=== PATIENT | female | born 1955 | race Two or more races ===

== ENCOUNTER 2022-11-30 06:21 | Day surgery (SDC) | payer MEDICARE, MEDICAID ==
[~2022-11-30] VITALS: Ht 152.4 cm; Wt 68.0 kg
[~2022-11-30 06:21] MED LIST: ACET-1080 PO; HYDR-4902 PO
[2022-11-30] MEDS ORDERED: PROPOFOL 10 MG/ML 20 ML IV ONE (06:22)
[2022-11-30] MEDS ORDERED: ceFAZolin 1GM/50ML 100 ML IV ONE (06:24)
[2022-11-30] MEDS ORDERED: LIDOCAINE 1% (LOCAL ANESTH.) PF 5ml SDV ONE (06:59)
[2022-11-30] MEDS ORDERED: DexAMETHasone SOD PHOS 4 MG/1ML SDV INJ ONE (07:00)
[2022-11-30] MEDS ORDERED: BUPIVACAINE 0.25% INJ 50ML VIAL ONE (07:00)
[2022-11-30] MEDS ORDERED: fentaNYL CITRATE 100 MCG/2 ML VL ONE (07:07)
[2022-11-30 07:48] VITALS: PULSE 96; RESP 19; TEMP 97.3; O2SAT 100
[2022-11-30] MEDS: HYDROmorphone HCL 2 MG/ML VL/or syr ONE ×2 (07:58→08:10)
[2022-11-30 08:00] VITALS: PULSE 87; RESP 22; O2SAT 97
[2022-11-30] MEDS ORDERED: ONDANSETRON HCL 4 MG/2 ML VIAL IV PRN (08:15)
[2022-11-30] MEDS ORDERED: KETOROLAC TROMETH 30 MG/ML 1ML VIAL IV ONE (08:15)
[2022-11-30] MEDS: HYDROmorphone HCL 2 MG/ML VL/or syr IV PRN ×2 (08:22→10:31)
[2022-11-30 09:03] VITALS: BP 131/71; PULSE 71; RESP 16; O2SAT 97
== END 2022-11-30 09:08 | disposition home or self-care (01) ==
LOC: SUR 06:21
PROVIDERS: ATTEND Orthopaedic Surgery Adult Reconstructive Orthopaedic Surgery
DX: M24.662 Ankylosis, left knee (principal); Z98.891 History of uterine scar from previous surgery; Z90.49 Acquired absence of other specified parts of digestive tract
CPT/HCPCS: 27570; J0690; J1100; J1170; J1885; J2704; J3010; J3490